=== PATIENT | female | born 1995 | race African-American/Black ===

== ENCOUNTER 2017-06-11 15:02 | Emergency (ER) | payer MEDICAID ==
[~2017-06-11] VITALS: Ht 170.2 cm; Wt 80.0 kg
[2017-06-11 15:33] VITALS: BP 127/85
== END 2017-06-11 18:40 | disposition home or self-care (01) ==
LOC: ER 15:02
DX: F41.9 Anxiety disorder, unspecified (principal); I49.9 Cardiac arrhythmia, unspecified; I10 Essential (primary) hypertension; F17.200 Nicotine dependence, unspecified, uncomplicated; J45.909 Unspecified asthma, uncomplicated
CPT/HCPCS: 93005; 99283